=== PATIENT | male | born 1955 | race Caucasian/White ===

== ENCOUNTER 2021-08-25 09:33 | Outpatient (CLI) | payer BC | END 2021-08-25 09:34 | disposition home or self-care (01) | LOC: CSHCP 09:33 | PROVIDERS: ATTEND Internal Medicine Pulmonary Disease | DX: J44.9 Chronic obstructive pulmonary disease, unspecified (principal); R06.00 Dyspnea, unspecified | CPT/HCPCS: 94060; 94726; 94729; 94760 ==